=== PATIENT | female | born 1975 | race Caucasian/White ===

== ENCOUNTER 2021-01-31 18:54 | Emergency (ER) | payer BC ==
[2021-01-31 19:28] VITALS: BP 179/104; PULSE 87
[2021-01-31] MEDS ORDERED: HYDROmorphone 0.5 MG/0.5 ML Syringe IVPUSH ONE (19:41)
[2021-01-31] MEDS ORDERED: Metoclopramide 10 MG/2 ML SDV IVPUSH ONE (19:41)
--- NOTE | 2021-01-31 19:41 | EDM.PDOC ---
ED HPI GENERAL MEDICAL PROBLEM - General Chief Complaint: Abdominal Pain Stated Complaint: LEFT SIDE PAIN Time Seen by Provider: 01/31/21 19:33 Source of Information: Reports: Patient History Limitations: Reports: No Limitations - History of Present Illness INITIAL COMMENTS - FREE TEXT/NARRATIVE: 45-year-old female presents to the ED complaining of gradually worsening left lateral abdominal pain over the last 3 days. She first began to appreciated on Monday evening January 29. By yesterday morning she appreciated walking and they went to [place] and she did fill it with every bump in the highway on the way home yesterday afternoon. Date its hurting to walk as well. She is also lost her appetite. No associated feeling of need to void or defecate. No history of kidney stones. No appreciable fever but she has had some chills. She did have a normal formed bowel movement this morning. Has not been having any issues with constipation. She has no past history of diverticular disease. She was told that she does have ulcerative colitis in the past but takes no medicine for it. Sounds like it may have been a transient bacterial induced enteritis. Only previous abdominal surgery is that of a laparoscopic cholecystectomy. Current pain is rated as 4-5 out of 10 with walking. At rest 2 out of 10. Onset: Gradual Onset Date: 01/29/21 Onset Time: 19:00 Duration: Day(s):, Constant, Getting Worse Location: Reports: Abdomen (Left lateral lower abdomen. She is able to localize it well.) Quality: Reports: Ache. Denies: Stabbing Severity: Moderate Improves with: Reports: Rest (4-5 out of 10 with walking. Pain is 2 out of 10 at rest) Worsens with: Reports: Other (Deep breathing walking and riding in a vehicle.), Movement Context: Denies: Activity, Exercise, Lifting, Sick Contact, Trauma Associated Symptoms: Reports: Fever/Chills, Loss of Appetite (Is but no fever.), Malaise. Denies: No Other Symptoms, Confusion, Chest Pain, Cough, cough w sputum, Diaphoresis, Headaches, Nausea/Vomiting, Rash, Seizure, Shortness of Breath, Syncope, Weakness, Other Treatments SAWDUST DRIER: Reports: Acetaminophen Left Abdomen Pain Score (Numeric/FACES): 4 - Related Data Allergies Allergy/AdvReac Type Severity Reaction Status Date / Time No Known Allergies Allergy Verified 01/31/21 19:28 Home Meds: Home Meds levoFLOXacin [Levaquin] 500 mg PO DAILY #7 tab 01/31/21 [Rx] oxyCODONE HCl/Acetaminophen [Percocet 5-325 mg Tablet] 1 - 2 each PO Q4H PRN #15 tablet 01/31/21 [Rx] Past Medical History Cardiovascular History: Reports: Hypertension Other Cardiovascular History: Fluctuating elevated BP [employer] History: Reports: Musculoskeletal History: Reports: Other (See Below) Other Musculoskeletal History: painful joints Psychiatric History: Reports: Anxiety - Past Surgical History HEENT Surgical History: Reports: Other (See Below) Other HEENT Surgeries/Procedures: broken nose GI Surgical History: Reports: Cholecystectomy (Laparoscopic) Social & Family History - Tobacco Use Tobacco Use Status *Q: Never Tobacco User - Caffeine Use Caffeine Use: Reports: Soda - Recreational Drug Use Recreational Drug Use: No - Living Situation & Occupation Living situation: Reports: Occupation: Employed ED ROS GENERAL - Review of Systems Review Of Systems: See Below Constitutional: Reports: Chills, Malaise, Weakness, Fatigue, Decreased Appetite. Denies: Fever HEENT: Reports: No Symptoms Respiratory: Reports: No Symptoms Cardiovascular: Reports: No Symptoms Endocrine: Reports: No Symptoms GI/Abdominal: Reports: Abdominal Pain (Left lateral lower abdominal pain.), Decreased Appetite. Denies: Constipation, Diarrhea, Difficulty Swallowing, Distension, Flatus, Hematochezia, Melena, Mucous in Stool, Nausea, Stool Incontinence, Vomiting, Other : Reports: No Symptoms Musculoskeletal: Reports: No Symptoms Skin: Reports: No Symptoms Neurological: Reports: No Symptoms Psychiatric: Reports: No Symptoms Hematologic/Lymphatic: Reports: No Symptoms Immunologic: Reports: No Symptoms ED EXAM, GI/ABD - Physical Exam Exam: See Below Exam Limited By: No Limitations General Appearance: Alert, WD/WN, No Apparent Distress, Other (Patient does feel slightly warm to palpation. Nurses recorded temperature is 36.9 degrees. Heart rate is 87 and sinus. Respiratory is 20 with O2 sats of 97% on room air. BP 179/104.) Eyes: Bilateral: Normal Appearance (No scleral icterus or blepharal pallor.) Throat/Mouth: Other (Tongue is mildly dry and slightly coated.) Head: Atraumatic, Normocephalic Neck: Normal Inspection, Supple, Non-Tender, Full Range of Motion. No: Lymphadenopathy (L), Lymphadenopathy (R) Respiratory/Chest: No Respiratory Distress, Lungs Clear, Normal Breath Sounds, No Accessory Muscle Use Cardiovascular: Normal Peripheral Pulses, Regular Rate, Rhythm, No Edema, No Gallop, No Murmur, No Rub GI/Abdominal Exam: Soft, No Organomegaly, No Abnormal Bruit, No Mass, Pelvis Stable, Tender (Is elicited to the left lower quadrant almost out to the mid axillary line well localized. She is also tender somewhat suprapubically over the distribution of the sigmoid colon.), Abnormal Bowel Sounds (Sounds are actually mildly hyperactive in all 4 quadrants of the abdomen.) Back Exam: Normal Inspection, Full Range of Motion. No: CVA Tenderness (L), CVA Tenderness (R) Extremities: Normal Inspection, Normal Range of Motion, Non-Tender, No Pedal Edema Neurological: Alert, Oriented, CN II-XII Intact, Normal Cognition Psychiatric: Normal Affect, Normal Mood Skin Exam: Warm, Dry, Intact, Normal Color, No Rash Course - Vital Signs Last Recorded V/S: Last Vital Signs Temp 36.9 C 01/31/21 19:12 Pulse 87 01/31/21 19:12 Resp 20 01/31/21 19:12 BP 179/104 H 01/31/21 19:12 Pulse Ox 97 01/31/21 19:12 - Orders/Labs/Meds Orders: Active Orders 24 hr Category Date Time Status Abdomen Pelvis w Cont [CT] Stat Exams 01/31/21 19:43 Taken Dextrose 5%-0.9% NaCl [Dextrose 5%-Normal Saline] 1,000 Med 01/31/21 19:45 Active ml IV ASDIRECTED Sodium Chloride 0.9% [Normal Saline] 100 ml Med 01/31/21 21:45 Active IV ASDIRECTED Sodium Chloride 0.9% [Saline Flush] Med 01/31/21 21:45 Active 10 ml FLUSH BOLUS Medication Orders Dextrose/Sodium Chloride (Dextrose 5%-Normal Saline) 1,000 mls @ 500 mls/hr IV ASDIRECTED JOAQUÍN Last Admin: 01/31/21 20:09 Dose: 500 mls/hr Documented by: [email or web address] Sodium Chloride (Normal Saline) 100 mls @ 60 drops/min IV ASDIRECTED JOAQUÍN Last Admin: 01/31/21 21:33 Dose: 60 drops/min Documented by: [email or web address] Sodium Chloride (Sodium Chloride 0.9% 10 Ml Syringe) 10 ml FLUSH BOLUS JOAQUÍN Last Admin: 01/31/21 21:33 Dose: 10 ml Documented by: [email or web address] Labs: Laboratory Tests 01/31/21 01/31/21 01/31/21 Range/Units 19:49 20:11 20:11 WBC 10.53 H (3.98-10.04) K/mm3 RBC 5.06 (3.98-5.22) M/mm3 Hgb 14.9 (11.2-15.7) gm/dl Hct 43.2 (34.1-44.9) % MCV 85.4 (79.4-94.8) fl MCH 29.4 (25.6-32.2) pg MCHC 34.5 (32.2-35.5) g/dl RDW Std Deviation 36.8 (36.4-46.3) fL Plt Count 258 (182-369) K/mm3 MPV 9.6 (9.4-12.3) fl Neut % (Auto) 76.9 H (34.0-71.1) % Lymph % (Auto) 15.9 L (19.3-51.7) % Spink % (Auto) 6.5 (4.7-12.5) % Eos % (Auto) 0.4 L (0.7-5.8) Baso % (Auto) 0.1 (0.1-1.2) % Neut # (Auto) 8.11 H (1.56-6.13) K/mm3 Lymph # (Auto) 1.67 (1.18-3.74) K/mm3 Spink # (Auto) 0.68 H (0.24-0.36) K/mm3 Eos # (Auto) 0.04 (0.04-0.36) K/mm3 Baso # (Auto) 0.01 (0.01-0.08) K/mm3 Manual Slide Review Normal smear PT 10.3 (9.7-12.0) SECONDS INR 0.96 APTT 23.9 (21.7-31.4) SECONDS Sodium (136-145) mEq/L Potassium (3.5-5.1) mEq/L Chloride (98-107) mEq/L Carbon Dioxide (21-32) mEq/L Anion Gap (5-15) BUN (7-18) mg/dL Creatinine (0.55-1.02) mg/dL Est Cr Clr Drug Dosing mL/min Estimated GFR (MDRD) (>60) mL/min BUN/Creatinine Ratio (14-18) Glucose (74-106) mg/dL Calcium (8.5-10.1) mg/dL Magnesium (1.8-2.4) mg/dl Total Bilirubin (0.2-1.0) mg/dL AST (15-37) U/L ALT (14-59) U/L Alkaline Phosphatase (46-116) U/L C-Reactive Protein (<1.0) mg/dL Total Protein (6.4-8.2) g/dl Albumin (3.4-5.0) g/dl Globulin gm/dL Albumin/Globulin Ratio (1-2) Lipase (73-393) U/L Urine Color Yellow (Yellow) Urine Appearance Clear (Clear) Urine pH 6.5 (5.0-8.0) Ur Specific [place] > or = 1.030 (1.005-1.030) Urine Protein Negative (Negative) Urine Glucose (UA) Negative (Negative) Urine Ketones Negative (Negative) Urine Occult Blood Negative (Negative) Urine Nitrite Negative (Negative) Urine Bilirubin Negative (Negative) Urine Urobilinogen 0.2 (0.2-1.0) Ur Leukocyte Esterase Negative (Negative) Urine RBC 0-5 (0-5) /hpf Urine WBC 0-5 (0-5) /hpf Ur Squamous Epith Cells 5-10 H (0-5) /hpf Urine Bacteria Few (FEW) /hpf Urine Mucus Few (FEW) /hpf 01/31/ Range/Units 20:11 WBC (3.98-10.04) K/mm3 RBC (3.98-5.22) M/mm3 Hgb (11.2-15.7) gm/dl Hct (34.1-44.9) % MCV (79.4-94.8) fl MCH (25.6-32.2) pg MCHC (32.2-35.5) g/dl RDW Std Deviation (36.4-46.3) fL Plt Count (182-369) K/mm3 MPV (9.4-12.3) fl Neut % (Auto) (34.0-71.1) % Lymph % (Auto) (19.3-51.7) % Spink % (Auto) (4.7-12.5) % Eos % (Auto) (0.7-5.8) Baso % (Auto) (0.1-1.2) % Neut # (Auto) (1.56-6.13) K/mm3 Lymph # (Auto) (1.18-3.74) K/mm3 Spink # (Auto) (0.24-0.36) K/mm3 Eos # (Auto) (0.04-0.36) K/mm3 Baso # (Auto) (0.01-0.08) K/mm3 Manual Slide Review PT (9.7-12.0) SECONDS INR APTT (21.7-31.4) SECONDS Sodium 140 (136-145) mEq/L Potassium 3.5 (3.5-5.1) mEq/L Chloride 104 (98-107) mEq/L Carbon Dioxide 26 (21-32) mEq/L Anion Gap 13.5 (5-15) BUN 10 (7-18) mg/dL Creatinine 1.0 (0.55-1.02) mg/dL Est Cr Clr Drug Dosing 65.81 mL/min Estimated GFR (MDRD) 60 (>60) mL/min BUN/Creatinine Ratio 10.0 L (14-18) Glucose 100 (74-106) mg/dL Calcium 9.0 (8.5-10.1) mg/dL Magnesium 2.2 (1.8-2.4) mg/dl Total Bilirubin 0.4 (0.2-1.0) mg/dL AST 15 (15-37) U/L ALT 26 (14-59) U/L Alkaline Phosphatase 75 (46-116) U/L C-Reactive Protein 0.4 (<1.0) mg/dL Total Protein 7.8 (6.4-8.2) g/dl Albumin 3.5 (3.4-5.0) g/dl Globulin 4.3 gm/dL Albumin/Globulin Ratio 0.8 L (1-2) Lipase 102 (73-393) U/L Urine Color (Yellow) Urine Appearance (Clear) Urine pH (5.0-8.0) Ur Specific [place] (1.005-1.030) Urine Protein (Negative) Urine Glucose (UA) (Negative) Urine Ketones (Negative) Urine Occult Blood (Negative) Urine Nitrite (Negative) Urine Bilirubin (Negative) Urine Urobilinogen (0.2-1.0) Ur Leukocyte Esterase (Negative) Urine RBC (0-5) /hpf Urine WBC (0-5) /hpf Ur Squamous Epith Cells (0-5) /hpf Urine Bacteria (FEW) /hpf Urine Mucus (FEW) /hpf Meds: Medications Generic Name Dose Route Start Last Admin Trade Name Freq PRN Reason Stop Dose Admin Dextrose/Sodium Chloride 1,000 mls @ 500 mls/hr 01/31/21 19:45 01/31/21 20:09 Dextrose 5%-Normal Saline IV 500 mls/hr ASDIRECTED JOAQUÍN Administration Sodium Chloride 100 mls @ 60 drops/min 01/31/21 21:45 01/31/21 21:33 Normal Saline IV 60 drops/min ASDIRECTED JOAQUÍN Administration Sodium Chloride 10 ml 01/31/21 21:45 01/31/21 21:33 Sodium Chloride 0.9% 10 Ml Syringe FLUSH 10 ml BOLUS JOAQUÍN Administration Discontinued Medications Generic Name Dose Route Start Last Admin Trade Name Freq PRN Reason Stop Dose Admin Hydromorphone HCl 0.5 mg 01/31/21 19:41 01/31/21 20:07 Hydromorphone 0.5 Mg/0.5 Ml Syringe IVPUSH 01/31/21 19:42 0.5 mg ONETIME ONE Administration Levofloxacin/Dextrose 750 mg/ 150 mls @ 100 mls/hr 01/31/21 21:43 01/31/21 22:01 Premix IV 01/31/21 23:12 100 mls/hr ONETIME ONE Administration Iopamidol 100 ml 01/31/21 21:31 01/31/21 21:34 Iopamidol 612 Mg/Ml 100 Ml Bottle IVPUSH 01/31/21 21:32 100 ml ONETIME ONE Administration Metoclopramide HCl 7.5 mg 01/31/21 19:41 01/31/21 20:08 Metoclopramide 10 Mg/2 Ml Sdv IVPUSH 01/31/21 19:42 7.5 mg ONETIME ONE Administration Metronidazole 500 mg 01/31/21 21:43 01/31/21 22:01 Metronidazole 500 Mg Tab PO 01/31/21 21:44 500 mg ONETIME ONE Administration Oxycodone/Acetaminophen 2 tab 01/31/21 23:01 01/31/21 23:56 Acetaminophen/Oxycodone 325-5 Mg Tab PO 01/31/21 23:02 2 tab ONETIME ONE Administration - Radiology Interpretation Free Text/Narrative:: 45-year-old female presents to the ED with left lower quadrant abdominal pain gradually worsening over the last 3 days. Pain is actually almost out to the left mid axillary line left lower quadrant of the abdomen. She is also somewhat tender suprapubically. No guarding rebound tenderness appreciated. Clinically has a low-grade fever. Plan routine labs to be done no blood cultures at this time. IV will be D5 normal saline at 500 mils per hour. Given Dilaudid 0.5 mg IV with Reglan 7.5 mg IV for pain and nausea relief. Urinalysis to be performed. She will have CT of the abdomen with oral and IV contrast. Working diagnosis is diverticulitis. - Re-Assessments/Exams Free Text/Narrative Re-Assessment/Exam: 01/31/21 21:44 scan of the abdomen pelvis has been performed with oral and IV contrast. Patient does have a small hiatal hernia with patulous distal esophagus. Visualized portions of the distal lungs are clear. Heart appears normal. Liver is within normal limits showing no intraductal dilatation. Gallbladder is absent. Pancreas appears normal spleen appears normal adrenal glands appear normal kidneys and ureters appear normal. Patient does have some increased stool in the right cecum. Appendix is visualized and is within normal limits. She does have a 2.9 x 2.7 cm ovarian cyst in the right ovary. No free fluid in the pelvis identified. Evaluation of the small bowel is normal. Evaluation of the large bowel does show an area of diverticulitis with surrounding inflammation in the descending left colon. There is no abscess or's significant phlegmon at this time. Patient will be treated with intravenous Levaquin 750 mg IV at this time and oral Flagyl 500 mg orally as well. 01/31/21 22:05 Hematology reveals a slightly elevated white count of 10.53 with 77% neutrophils. A mild left shift. Hemoglobin 14.9 with hematocrit of 43.2. Platelet count is 258,000. The smear reveals no band cells. Coags reveal a PT of 10.3 and an INR of 0.96. PTT is 23.9. Sodium 140 with potassium of 3.5 chloride 104 the bicarb of 26. Anion gap is 13.5. BUN is 10 with a creatinine of 1.0 GFR is greater than 60. Glucose is 100 calcium is 9.0. Magnesium is 2.2 liver function is normal C-reactive protein is normal at 0.4. Total protein 7.8 with an albumin fraction of 3.5L globulin is 4.3 lipase normal at 102. Urinalysis is completely normal other than 5-10 squamous epithelial cells identified in the urine. Free Text/Narrative Re-Assessment/Exam: 01/31/21 22:06 Vrad over read by radiology services suggest alternative diagnosis. They identify few small bilateral renal cysts which are similar to comparison examination. 8 mm hypodense lesion in the right lobe of the liver which does not persist on delayed imaging and is stable in size on comparison to other exams. It is felt to represent a small hemangioma. Solid abdominal organs are otherwise unremarkable. She is post status cholecystectomy. There is mild stable fullness of the common bile duct which likely reflects postcholecystectomy state. A small fat attenuation structure is present adjacent to the descending colon with mild adjacent stranding which is consistent with an inflamed epiploic appendage. Bowel is otherwise unremarkable oral contrast reaches the mid to distal small bowel normal appendix is identified. The abdominal aorta is unremarkable. No abdominal or pelvic lymphadenopathy present. Uterus is retroflexed. The right ovary does contain a cyst measuring 2.6 x 2.4 cm on their assessment. Left ovary is unremarkable. Urinary bladder is nondistended and unremarkable. Minimal dependent pelvic fluid no free intraperitoneal fluid osseous structures are intact. Therefore difficult to make a definitive decision. On my assessment there are few diverticuli in close approximation to the inflammation I can see in the descending colon. I do not see any other fat appendices in the area. She also has a mildly elevated white count with a left shift. The plan will be to treat her with Levaquin 500 mg p.o. orally for a total of 7 days and Percocet tablets as needed for pain relief. I will for gait fungal treatment with Flagyl at this time. I will have her follow-up with your personal physician in 3 days time. 02/01/21 00:59 patient has completed her intravenous Levaquin 750 mg IV. Pain is tolerable at this point time. She will be sent home with 2 Percocet 5 325 mg tablets for pain relief during the night if needed. She will continue Levaquin only 500 mg daily for another 7 days once daily after supper. Advised follow-up with personal care physician in 7 days time. Departure - Departure Time of Disposition: 23:53 Disposition: Home, Self-Care 01 Condition: Fair Clinical Impression: Left lower quadrant abdominal pain Diverticulitis large intestine Qualifiers: Diverticulitis bleeding: without bleeding Diverticulitis complication: without perforation or abscess Qualified Code(s): K57.32 - Diverticulitis of large intestine without perforation or abscess without bleeding - Discharge Information *PRESCRIPTION DRUG MONITORING PROGRAM REVIEWED*: Not Applicable *COPY OF PRESCRIPTION DRUG MONITORING REPORT IN PATIENT CRISTOPHER: Not Applicable Prescriptions: levoFLOXacin [Levaquin] 500 mg PO DAILY #7 tab oxyCODONE HCl/Acetaminophen [Percocet 5-325 mg Tablet] 1 - 2 each PO Q4H PRN #15 tablet PRN Reason: pain relief. Instructions: Diverticulitis, [id number] Referrals: PCP,None [Primary Care Provider] - Forms: ED Department Discharge Additional Instructions: Evaluation in the emergency room today in regards to gradually worsening left- sided lower abdominal pain over the last 3 days. Hurts to ride in a vehicle to cough or sneeze. It is also making you walk slower than normal. No noted fever but associated chills. Examination reveals well localized pain over the left large bowel left mid lower abdomen. Lab work shows a mildly elevated white blood cell count at 10.8 with a left shift suggesting an infection is present. CT of the abdomen pelvis has been performed with oral and IV contrast. It reveals inflammation along the lower portion of the descending colon on the left side suggestive of diverticulitis inflammatory process. However x-ray over read by V rad radiologist suggests a alternative diagnosis which is called an infarcted appendices epiploic CA which is a fat globules that can twist on itself on the large bowel and cause pain and inflammation very similar in appearance to the diverticulitis. Decision made to err on the side of diverticulitis because his is potentially serious. You were given first dose of antibiotic Levaquin 750 mg in the ED and first dose of Flagyl 500 mg by mouth as well. Treatment as an outpatient will be Levaquin by itself 500 mg once daily for another 7 days. Percocet tabs 5 325 mg ideally 1 tablet with Motrin 600 mg tablet every 4-6 hours as necessary for pain relief over the next 3 days. Suggest follow-up with personal care physician in 3 days time for reevaluation. At that time diverticulitis should be pretty well gone and he should be relatively pain-free. An infarcted appendices opposed to a may still be tender for another 3 days. Since you do not have a primary care physician at this time I would suggest trying to arrange an appointment to see Dr. Petit on the third floor of our [facility]. Please phone [phone] tomorrow morning to arrange an appointment. Sepsis Event Note (ED) - Evaluation Sepsis Screening Result: No Definite Risk - Focused Exam Vital Signs: Vital Signs Temp Pulse Resp BP Pulse Ox 01/31/21 19:12 36.9 C 87 20 179/104 H 97 - My Orders Last 24 Hours: My Active Orders 01/31/21 19:43 Abdomen Pelvis w Cont [CT] Stat 01/31/21 19:45 Dextrose 5%-0.9% NaCl [Dextrose 5%-Normal Saline] 1,000 ml IV ASDIRECTED 01/31/21 21:45 Sodium Chloride 0.9% [Normal Saline] 100 ml IV ASDIRECTED Sodium Chloride 0.9% [Saline Flush] 10 ml FLUSH BOLUS - Assessment/Plan Last 24 Hours: My Active Orders 01/31/21 19:43 Abdomen Pelvis w Cont [CT] Stat 01/31/21 19:45 Dextrose 5%-0.9% NaCl [Dextrose 5%-Normal Saline] 1,000 ml IV ASDIRECTED 01/31/21 21:45 Sodium Chloride 0.9% [Normal Saline] 100 ml IV ASDIRECTED Sodium Chloride 0.9% [Saline Flush] 10 ml FLUSH BOLUS
[2021-01-31] MEDS ORDERED: Dextrose 5%-0.9% NaCl 1,000 ML IV SCH (19:45)
[2021-01-31] MEDS ORDERED: Iopamidol 612 MG/ML 100 ML Bottle IVPUSH ONE (21:31)
[2021-01-31] MEDS ORDERED: Levofloxacin/Dextrose 5%-Water 750 MG in Premix Bag 1 BAG IV ONE (21:43)
[2021-01-31] MEDS ORDERED: metroNIDAZOLE 500 MG Tab PO ONE (21:43)
[2021-01-31] MEDS ORDERED: Sodium Chloride 0.9% 10 ML Syringe FLUSH SCH (21:45)
[2021-01-31] MEDS ORDERED: Sodium Chloride 0.9% 100 ML IV SCH (21:45)
[2021-01-31] MEDS ORDERED: Acetaminophen/oxyCODONE 325-5 MG Tab PO ONE (23:01)
--- NOTE | 2021-02-01 10:29 | CT ---
CT abdomen and pelvis Technique: Multiple axial sections were obtained from above the dome of the diaphragm inferiorly through the pubic symphysis. Intravenous contrast and oral contrast has been given. Delayed images were also obtained through the abdomen and pelvis. Reconstructed coronal and sagittal images were obtained. Comparison: Prior right upper quadrant abdominal ultrasound of 01/18/[address] abdomen and pelvis study of 04/10/15. Findings: Visualized lung bases show nothing acute. Liver shows a small abnormality within the right lobe which is difficult to measure but is around 1.3 cm, this is seen on prior CT exam. This finding is most likely a small hemangioma as a hyperechoic area is seen on the prior ultrasound exam. No additional liver abnormality is appreciated. Surgical clips are noted from prior cholecystectomy. Spleen appears within normal limits. Adrenal glands show no nodule. Small low density areas are seen within both kidneys which are believed to be fairly stable from prior CT exam and most likely represent multiple cysts. No hydronephrosis is appreciated. Delayed images show contrast within both ureters and within the bladder. Pancreas appears normal. Abdominal aorta shows no aneurysm. No retroperitoneal adenopathy is seen. No mesenteric abnormalities are appreciated. Cyst is noted within the right ovary measuring 2.7 cm. Small amount of fluid is seen within the pelvis which is most likely physiologic. Appendix is seen and is normal in appearance. Very minimal inflammatory change is seen off the left colon with no diverticuli. This finding is most likely due to epiploic appendage. Bone window settings were reviewed which appear within normal limits for the patient's age. Impression: 1. Slight inflammatory change off the left colon most likely representing epiploic appendage. 2. Minimally prominent cyst within the right ovary measuring 2.7 cm with free fluid. 3. Other findings believed to be chronic and of no acute significance. Diagnostic code #3 I agree with preliminary report from [facility], finalized on 01/31/21, 10:56 PM CDT
== END 2021-02-01 00:12 | disposition home or self-care (01) ==
LOC: JD.ED 18:54
DX: K57.32 Diverticulitis of large intestine without perforation or abscess without bleeding (principal); I10 Essential (primary) hypertension
CPT/HCPCS: 36415; 74177; 80053; 81001; 83690; 83735; 85025; 85610; 85730; 86140; 96365; 96366; 96375; 99284; A9270; J1170; J1956; J2765; J7042; Q9967

== ENCOUNTER 2024-08-13 13:22 | Emergency (ER) | payer BC ==
[2024-08-13] MEDS: Sodium Chloride 0.9% 1,000 ML IV SCH (14:10)
[2024-08-13 14:24] LABS: APPEARANCE,URINE CLEAR (Clear); BILIRUBIN,URINE NEGATIVE (Negative); COLOR,URINE AMBER (Yellow); GLUCOSE,URINE TRACE (Negative); KETONES,URINE NEGATIVE (Negative); LEUKOCYTE ESTERASE,URINE NEGATIVE (Negative); NITRITE,URINE POSITIVE (Negative); OCCULT BLOOD,URINE NEGATIVE (Negative); PH,URINE 5.5 (5.0-8.0); PROTEIN,URINE TRACE (Negative)
[2024-08-13 14:26] LABS: BASOPHILS PERCENT AUTO 0.2 % (0.0-1.0); EOSINOPHILS PERCENT AUTO 0.4 % (0.0-6.0); HEMATOCRIT 43.6 % (37.0-47.0); IMMATURE GRAN ABSOLUTE AUTO 0.02 K/mm3 (0.00-0.05); IMMATURE GRAN PERCENT AUTO 0.2 % (0.0-0.4); LYMPHOCYTES ABSOLUTE AUTO 1.7 K/mm3 (1.0-4.8); LYMPHOCYTES PERCENT AUTO 20.9 % (24.0-44.0); MEAN CORPUSCULAR HEMOGLOBIN 29.9 pg (28.0-32.0); MEAN CORPUSCULAR HGB CONC 34.4 g/dl (32.0-36.0); MONOCYTES ABSOLUTE AUTO 0.6 K/mm3 (0.0-0.8); MONOCYTES PERCENT AUTO 7.4 % (0.0-8.0); NEUTROPHILS ABSOLUTE AUTO 5.8 K/mm3 (1.8-7.7); NEUTROPHILS PERCENT AUTO 70.9 % (41.0-71.0); PLATELET COUNT,PLT 278 K/mm3 (150-400); RED BLOOD CELL COUNT 5.01 M/mm3 (4.10-5.30); WHITE BLOOD CELL COUNT,WBC 8.24 K/mm3 (3.9-11.3)
[2024-08-13] MEDS: Iopamidol 612 MG/ML 100 ML Bottle IVPUSH ONE (14:28)
[2024-08-13] MEDS: Sodium Chloride 0.9% 10 ML Syringe FLUSH PRN (14:28)
[2024-08-13 14:36] LABS: BACTERIA,URINE FEW /hpf (FEW); EPITHELIAL CELLS,URINE 0-5 /hpf (0-5); MUCUS,URINE FEW /hpf (FEW); RBC,URINE 0-5 /hpf (0-5); WBC,URINE 0-5 /hpf (0-5)
[2024-08-13 14:43] LABS: ALBUMIN 3.8 g/dl (3.4-5.0); ANION GAP 13.6 (5-15); BILIRUBIN TOTAL 0.6 mg/dL (0.2-1.0); BUN/CREATININE RATIO 11.1 (14-18); CALCIUM 9.3 mg/dL (8.5-10.1); CREATININE 0.9 mg/dL (0.55-1.02); EST CRCL DRUG DOSING (CG) 70.01 mL/min; POTASSIUM,K 3.6 mEq/L (3.5-5.1); PROTEIN TOTAL,TP 7.7 g/dl (6.4-8.2)
[2024-08-13] MEDS: Acetaminophen/HYDROcodone 325-5 MG Tab PO ONE (16:06)
[2024-08-13 16:15] VITALS: BP 141/94; PULSE 82
== END 2024-08-13 16:14 | disposition home or self-care (01) ==
LOC: JD.ED 13:22
DX: N83.201 Unspecified ovarian cyst, right side (principal); I10 Essential (primary) hypertension; Z79.899 Other long term (current) drug therapy
CPT/HCPCS: 36415; 74177; 80053; 81001; 83605; 85025; 87086; 96360; 96361; 99284; A9270; J3490; J7030; Q9967

== ENCOUNTER 2024-09-10 08:52 | Emergency (ER) | payer BC ==
[2024-09-10 09:43] LABS: BASOPHILS PERCENT AUTO 0.3 % (0.0-1.0); EOSINOPHILS PERCENT AUTO 0.3 % (0.0-6.0); HEMATOCRIT 44.2 % (37.0-47.0); HEMOGLOBIN 15.3 gm/dl (12.0-16.0); IMMATURE GRAN ABSOLUTE AUTO 0.03 K/mm3 (0.00-0.05); IMMATURE GRAN PERCENT AUTO 0.4 % (0.0-0.4); LYMPHOCYTES ABSOLUTE AUTO 1.7 K/mm3 (1.0-4.8); LYMPHOCYTES PERCENT AUTO 22.3 % (24.0-44.0); MEAN CORPUSCULAR HEMOGLOBIN 29.8 pg (28.0-32.0); MEAN CORPUSCULAR HGB CONC 34.6 g/dl (32.0-36.0); MEAN CORPUSCULAR VOLUME 86.2 fl (83.0-99.0); MEAN PLATELET VOLUME 9.4 fl (9.4-12.3); MONOCYTES ABSOLUTE AUTO 0.5 K/mm3 (0.0-0.8); MONOCYTES PERCENT AUTO 6.3 % (0.0-8.0); NEUTROPHILS ABSOLUTE AUTO 5.5 K/mm3 (1.8-7.7); NEUTROPHILS PERCENT AUTO 70.4 % (41.0-71.0); PLATELET COUNT,PLT 294 K/mm3 (150-400); RED BLOOD CELL COUNT 5.13 M/mm3 (4.10-5.30)
[2024-09-10] MEDS: Famotidine 20 MG Tab PO ONE (10:02)
[2024-09-10] MEDS: Alum Hydrox/Mag Hydrox/Simeth 30 ML, Lidocaine 2% 15 ML PO ONE (10:02)
[2024-09-10] MEDS: Sodium Chloride 0.9% 10 ML Syringe FLUSH PRN (10:02)
[2024-09-10] MEDS: Sodium Chloride 0.9% 1,000 ML IV ONE (10:02)
[2024-09-10 10:06] LABS: ALBUMIN 3.9 g/dl (3.4-5.0); ANION GAP 12.2 (5-15); BILIRUBIN TOTAL 0.6 mg/dL (0.2-1.0); CALCIUM 9.7 mg/dL (8.5-10.1); EST CRCL DRUG DOSING (CG) 63.01 mL/min; POTASSIUM,K 3.2 mEq/L (3.5-5.1); PROTEIN TOTAL,TP 7.9 g/dl (6.4-8.2)
[2024-09-10] MEDS: Ondansetron 4 MG/2 ML SDV IVPUSH ONE (10:09)
[2024-09-10] MEDS: Iopamidol 612 MG/ML 100 ML Bottle IVPUSH ONE (10:15)
[2024-09-10 10:22] LABS: APPEARANCE,URINE SLT CLOUDY (Clear); BILIRUBIN,URINE NEGATIVE (Negative); COLOR,URINE YELLOW (Yellow); GLUCOSE,URINE NEGATIVE (Negative); KETONES,URINE NEGATIVE (Negative); LEUKOCYTE ESTERASE,URINE NEGATIVE (Negative); NITRITE,URINE NEGATIVE (Negative); OCCULT BLOOD,URINE TRACE-INTACT (Negative); PH,URINE 6.5 (5.0-8.0); PROTEIN,URINE NEGATIVE (Negative); UROBILINOGEN,URINE 0.2 (0.2-1.0)
[2024-09-10 10:26] LABS: WBC,URINE 0-5 /hpf (0-5)
[2024-09-10 10:27] LABS: BACTERIA,URINE FEW /hpf (FEW); MUCUS,URINE FEW /hpf (FEW)
[2024-09-10] MEDS: Sodium Chloride 0.9% 10 ML Syringe FLUSH ONE (11:42)
[2024-09-10 15:33] VITALS: BP 139/94; PULSE 87
== END 2024-09-10 13:19 | disposition home or self-care (01) ==
LOC: JD.ED 08:52
DX: R10.11 Right upper quadrant pain (principal); R10.12 Left upper quadrant pain; R10.13 Epigastric pain; R07.81 Pleurodynia; I10 Essential (primary) hypertension; Z90.49 Acquired absence of other specified parts of digestive tract; Z79.899 Other long term (current) drug therapy
CPT/HCPCS: 36415; 71045; 74177; 80053; 81001; 83690; 84484; 84703; 85025; 93005; 96361; 96374; 99284; A9270; J2405; J3490; J7030; Q9967

== ENCOUNTER 2024-10-01 08:36 | Day surgery (SDC) | payer BC ==
[~2024-10-01 08:36] MED LIST: Sodium Chloride 0.9% 10 ML Syringe FLUSH PRN; Sodium Chloride 0.9% 10 ML Syringe FLUSH SCH
[2024-10-01] MEDS: Lactated Ringers 1,000 ML IV SCH (09:00)
[2024-10-01] MEDS ORDERED: HYDROmorphone 0.5 MG/0.5 ML Syringe IVPUSH PRN (09:52)
[2024-10-01] MEDS ORDERED: fentaNYL 100 MCG/2 ML SDV IVPUSH PRN (09:52)
[2024-10-01] MEDS ORDERED: Ondansetron 4 MG/2 ML SDV IVPUSH PRN (09:52)
[2024-10-01] MEDS ORDERED: Propofol 200 MG/20 ML SDV ONE ×2 (10:07→10:16)
[2024-10-01] MEDS ORDERED: Lidocaine 2% 5 ML SDV ONE (10:10)
[2024-10-01] MEDS ORDERED: Esmolol 100 MG/10 ML SDV ONE (10:12)
[2024-10-01 11:59] VITALS: BP 112/68; PULSE 86
== END 2024-10-01 11:50 | disposition home or self-care (01) ==
LOC: JD.SDS 08:36
PROVIDERS: ATTEND Surgery
DX: K29.50 Unspecified chronic gastritis without bleeding (principal); K31.7 Polyp of stomach and duodenum; K44.9 Diaphragmatic hernia without obstruction or gangrene; F41.1 Generalized anxiety disorder; I10 Essential (primary) hypertension; M94.0 Chondrocostal junction syndrome [Tietze]; Z79.899 Other long term (current) drug therapy
CPT/HCPCS: 43239; J2704; J3490; J7120; 00731